=== PATIENT | female | born 1975 | race Two or more races ===

== ENCOUNTER 2024-04-03 09:40 | Emergency (ER) | payer OTHER ==
[2024-04-03 09:49] VITALS: BP 144/82; PULSE 68; RESP 20; TEMP 98.6; BMI 28.2
[2024-04-03] MEDS ORDERED: CLINDAMYCIN HCL 150 MG CAPSULE (FP) ONE (11:06)
[2024-04-03] MEDS: CLINDAMYCIN HCL 150 MG CAPSULE (FP) PO ONE (11:13)
== END 2024-04-03 11:05 | disposition home or self-care (01) ==
LOC: JERFT 09:40
DX: L08.0 Pyoderma (principal)
CPT/HCPCS: 99283-25

== ENCOUNTER 2024-05-24 12:56 | Emergency (ER) | payer OTHER ==
[2024-05-24 13:06] VITALS: BP 129/83; PULSE 65; RESP 16; TEMP 98; BMI 69.3
[2024-05-24] MEDS ORDERED: LIDOCAINE HCL 1%, 10 MG/ML (20ML VIAL) ONE (13:33)
[2024-05-24] MEDS: LIDOCAINE HCL 1%, 10 MG/ML (50 mL VIAL) INF ONE (13:34)
== END 2024-05-24 14:36 | disposition home or self-care (01) ==
LOC: JERFT 12:56
PROC: 0H9HXZZ Drainage of Right Upper Leg Skin, External Approach (ICD-10-PCS; principal; 2024-05-24)
DX: L02.412 Cutaneous abscess of left axilla (principal); L02.416 Cutaneous abscess of left lower limb; L02.415 Cutaneous abscess of right lower limb
CPT/HCPCS: 87070; 87186; 87205; 99283-25